=== PATIENT | female | born 1980 | race Two or more races ===

== ENCOUNTER 2020-10-14 19:58 | Emergency (ER) | payer MEDICAID ==
[~2020-10-14] VITALS: Ht 157.5 cm; Wt 111.1 kg
[2020-10-14 20:02] VITALS: BP 151/81
[2020-10-14] MEDS ORDERED: cefTRIAXone SOD 1,000 MG VL IM ONE (23:15)
== END 2020-10-14 23:38 | disposition home or self-care (01) ==
LOC: ER 20:20
DX: N73.8 Other specified female pelvic inflammatory diseases (principal); Z98.890 Other specified postprocedural states
CPT/HCPCS: 96372; 99283; J0696

== ENCOUNTER 2021-10-08 12:29 | Emergency (ER) | payer MEDICAID ==
[~2021-10-08] VITALS: Ht 160 cm; Wt 108.9 kg
[2021-10-08 13:53] LABS: Basophils # (auto) 0 10 ^3/uL (0-0.2); Basophils % (auto) 0.2 % (0.0-2.0); Eosinophils # (auto) 0 10 ^3/uL (0-0.8); Eosinophils % (auto) 0.5 % (0.0-7.0); Hematocrit 37.3 % (36.0-46.0); Hemoglobin 12.9 g/dL (12.2-16.2); Lymphocytes # (auto) 3.2 10 ^3/uL (0.4-5.4); Lymphocytes % (auto) 37.7 % (10.0-50.0); Mean Corpuscular Hemoglobin 31.5 pg (28.0-32.0); Mean Corpuscular Hgb Conc. 34.5 g/dL (32.0-36.0); Mean Corpuscular Volume 91.1 fL (80.0-100.0); Monocytes # (auto) 0.4 10 ^3/uL (0-1.3); Monocytes % (auto) 5.1 % (0.0-12.0); Neutrophils # (auto) 4.8 10 ^3/uL (1.6-8.6); Neutrophils % (auto) 56.5 % (37.0-80.0); Nucleated Red Blood Cells % 0.1 %; Red Cell Distribution Width 13.5 % (11.8-14.3); White Blood Cell 8.5 10^3/uL (4.4-10.8)
[2021-10-08 14:06] LABS: Calcium 8.9 mg/dL (8.5-10.1); Potassium 4.2 mmol/L (3.5-5.1)
[2021-10-08 14:10] LABS: Albumin 3.4 g/dL (3.4-5.0); BUN/Creatinine Ratio 12.2
[2021-10-08 14:12] LABS: Bilirubin, Total 0.1 mg/dL (0.2-1.0)
[2021-10-08 14:30] VITALS: BP 146/98
== END 2021-10-08 14:36 | disposition home or self-care (01) ==
LOC: ER 12:29
DX: N83.201 Unspecified ovarian cyst, right side (principal); N93.8 Other specified abnormal uterine and vaginal bleeding; Z98.51 Tubal ligation status
CPT/HCPCS: 36415; 76856; 80053; 84702; 85025

== ENCOUNTER 2025-02-12 21:18 | Emergency (ER) | payer SELFPAY ==
[~2025-02-12] VITALS: Ht 157.5 cm; Wt 117.7 kg
[2025-02-12 21:20] VITALS: BP 178/97; PULSE 113; RESP 16; TEMP 98.6; O2SAT 96
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
== END 2025-02-13 00:20 | disposition home or self-care (01) ==
LOC: ER 21:18
DX: S43.402A Unspecified sprain of left shoulder joint, initial encounter (principal); S90.31XA Contusion of right foot, initial encounter; S30.1XXA Contusion of abdominal wall, initial encounter; E78.5 Hyperlipidemia, unspecified; E66.01 Morbid (severe) obesity due to excess calories; Z98.51 Tubal ligation status; Z98.890 Other specified postprocedural states; Z68.42 Body mass index [BMI] 45.0-49.9, adult; V43.52XA Car driver injured in collision with other type car in traffic accident, initial encounter; Y93.89 Activity, other specified; Y92.488 Other paved roadways as the place of occurrence of the external cause; Y99.8 Other external cause status